=== PATIENT | female | born 1940 | race Caucasian/White ===

== ENCOUNTER 2016-12-03 09:11 | Outpatient (CLI) | payer MEDICARE ==
[~2016-12-03] VITALS: Ht 162.6 cm; Wt 72.7 kg
[2016-12-03] MEDS ORDERED: SERT100T PO (09:32)
[2016-12-03] MEDS ORDERED: LOVA10TA PO (09:32)
[2016-12-03] MEDS ORDERED: NAPR220T66 PO (09:32)
[2016-12-03 09:35] VITALS: BP 135/73
[2016-12-03 10:09] LABS: BASOPHILS % (AUTO) 0 % (0-10); EOSINOPHILS % (AUTO) 1 % (0-10); LYMPHOCYTES # (AUTO) 2.4 X 10^3 (1.0-4.0); LYMPHOCYTES % (AUTO) 33 % (12-44); MEAN CORPUSCULAR HEMOGLOBIN 29 PG (25-34); MEAN CORPUSCULAR HGB CONC 34 G/DL (32-36); MEAN CORPUSCULAR VOLUME 86 FL (80-99); MEAN PLATELET VOLUME 9.5 FL (7.4-10.4); MONOCYTES # (AUTO) 0.6 X 10^3 (0.0-1.0); MONOCYTES % (AUTO) 8 % (0-12); NEUTROPHILS # (AUTO) 4.1 X 10^3 (1.8-7.8); NEUTROPHILS % (AUTO) 58 % (42-75); PLATELET COUNT 215 10^3/uL (130-400); RED BLOOD COUNT 4.65 10^6/uL (4.35-5.85); WHITE BLOOD COUNT 7.1 10^3/uL (4.3-11.0)
[2016-12-11] MEDS ORDERED: DOCU100C37 PO (08:52)
[2016-12-11] MEDS ORDERED: OXYC-465 PO (08:52)
== END 2016-12-03 10:23 | disposition home or self-care (01) ==
LOC: PREOP 09:11
PROVIDERS: ATTEND Obstetrics & Gynecology
DX: Z01.812 Encounter for preprocedural laboratory examination (principal); N81.10 Cystocele, unspecified; N39.3 Stress incontinence (female) (male)
CPT/HCPCS: 36415; 85025; 87081

== ENCOUNTER 2016-12-10 12:08 | Day surgery (SDC) | payer MEDICARE ==
[~2016-12-10] VITALS: Ht 162.6 cm; Wt 72.7 kg
[~2016-12-10 12:08] MED LIST: LOVA10TA PO; NAPR220T66 PO; SERT100T PO
[2016-12-10] MEDS ORDERED: WATER (STERILE) FOR INJ 10 ML BTL INJ ONE (12:45)
[2016-12-10] MEDS ORDERED: BENZOCAINE/MENTHOL (DERMOPLAST) 56 ML CAN TP PRN (12:45)
[2016-12-10] MEDS ORDERED: ONDANSETRON 4 MG/2 ML (SDV) Z0FRAN IVP PRN ×2 (12:45→16:15)
[2016-12-10] MEDS ORDERED: fentaNYL INJECTION 100 MCG/2 ML AMP IVP PRN (12:45)
[2016-12-10] MEDS ORDERED: oxyCODONE/APAP 10/325MG (PERCOCET 10) TABLET PO PRN (12:45)
[2016-12-10] MEDS ORDERED: ESTROGENS CONJ IV 25 MG/5 ML (PREMARIN) VIAL IVP ONE (12:45)
--- NOTE | 2016-12-10 12:48 | Progress Note-Pre Operative ---
Pre-Operative Progress Note H&P Reviewed The H&P was reviewed, patient examined and no changes noted. Date Seen by Provider: Dec 10, 2016 Time Seen by Provider: 12:48 Date H&P Reviewed: Dec 10, 2016 Time H&P Reviewed: 12:48 Pre-Operative Diagnosis: vaginal prolapse and stress urinary incontinence JUAN MANUEL LEWIS MD Dec 10, 2016 12:48 pm
--- NOTE | 2016-12-10 12:49 | Progress Note-Post Operative ---
Post-Operative Progess Note Surgeon (s)/Certified Technician (s) Surgeon JUAN MANUEL LEWIS MD Certified Technician: Delia Mendez RN Pre-Operative Diagnosis vaginal prolapse and stress urinary incontinence Post-Operative Diagnosis same Procedure & Operative Findings Date of Procedure 12/10/16 Procedure Performed/Findings anterior and posterior vaginal repairs with enterocele repair and SSLS Anesthesia Type Gen. Estimated Blood Loss Estimated blood loss (mL): 100 cc Specimens/Packing Specimens Removed none Packing: JUAN MANUEL Carrasco MD Dec 10, 2016 12:49
[2016-12-10] MEDS ORDERED: ceFAZolin 1 GM/NS 50 ML IVPB IV ONE ×2 (13:00)
[2016-12-10] MEDS: LACTATED RINGERS 1,000 ML IV PRN ×2 (13:00→16:39)
[2016-12-10] MEDS ORDERED: NS (IVPB) 50 ML ONE (13:00)
[2016-12-10] MEDS ORDERED: ceFAZolin 1,000 MG (ANCEF) VIAL ONE (13:00)
[2016-12-10 13:30] VITALS: BP 134/69
[2016-12-10] MEDS ORDERED: ESTRADIOL VAGINAL CREAM 42.5 GM (ESTRACE) VG ONE (13:51)
[2016-12-10] MEDS ORDERED: proPOfol 200 MG/20 ML (DIPRIVAN) VIAL IV ONE (14:31)
[2016-12-10] MEDS ORDERED: SEVOFLURANE (ULTANE) 15 ML INHAL SOLN ONE (14:31)
[2016-12-10] MEDS ORDERED: LIDOCAINE PF 2% 5 ML (XYLOCAINE) VIAL ONE (14:31)
[2016-12-10] MEDS ORDERED: DEXAMETHASONE 10 MG/ML (DECADRON) 1 ML VIAL ONE (14:31)
[2016-12-10] MEDS ORDERED: FAMOTIDINE 20MG/2ML IV (PEPCID) IV ONE (14:45)
[2016-12-10] MEDS ORDERED: ONDANSETRON 4 MG/2 ML (SDV) Z0FRAN IV ONE (14:45)
[2016-12-10] MEDS ORDERED: morphine INJ 10 MG/ML 1ML (SYR OR VIAL) ONE (15:54)
[2016-12-10] MEDS ORDERED: WATER (STERILE) FOR INJECTION 10 ML ONE (15:54)
[2016-12-10] MEDS ORDERED: KETOROLAC 30 MG/ML VIAL ONE (15:54)
[2016-12-10] MEDS ORDERED: ESTROGENS CONJ IV 25 MG/5 ML (PREMARIN) VIAL ONE (15:54)
--- NOTE | 2016-12-10 15:55 | Progress Note-Post Operative ---
Post-Operative Progess Note Surgeon (s)/Horticulture Professor (s) Surgeon KENZIE CHAVEZ MD Horticulture Professor: DEBBIE Pre-Operative Diagnosis vaginal prolapse and stress urinary incontinence Post-Operative Diagnosis SAME Procedure & Operative Findings Date of Procedure 12/10/16 Procedure Performed/Findings PVS AND CYSTO Anesthesia Type GENERAL Estimated Blood Loss Estimated blood loss (mL): NEGLIGIBLE Specimens/Packing Specimens Removed NONE Packing: ESTRACE VAG PACK KENZIE CHAVEZ MD Dec 10, 2016 3:55 pm
[2016-12-10] MEDS ORDERED: PROMETHAZINE INJ 25 MG/ML (PHENERGAN) AMP ONE (16:37)
[2016-12-10] MEDS: morphine INJ 10 MG/ML 1ML (SYR OR VIAL) IVP PRN ×2 (16:39→16:44)
[2016-12-10] MEDS: KETOROLAC 15 MG/ML VIAL IVP SCH ×2 (16:43→23:05)
[2016-12-10] MEDS ORDERED: PROMETHAZINE INJ 25 MG/ML (PHENERGAN) AMP IVP PRN (16:45)
[2016-12-10] MEDS: fentaNYL INJECTION 100 MCG/2 ML AMP IVP PRN ×2 (16:50→17:00)
[2016-12-10 18:40] VITALS: BP 114/58
[2016-12-10 19:05] VITALS: BP 122/54
[2016-12-10] MEDS: D5 LR IV SOLUTION 1,000 ML IV SCH (19:39)
[2016-12-10] MEDS: FAMOTIDINE 20 MG (PEPCID) TABLET PO SCH (20:29)
[2016-12-10] MEDS ORDERED: CITRIC ACID/SOB CIT (BICITRA) 30 ML UDC PO ONE (20:30)
[2016-12-10 23:00] VITALS: BP 127/69
[2016-12-11 03:30] VITALS: BP 107/48
[2016-12-11] MEDS: D5 LR IV SOLUTION 1,000 ML IV SCH (03:35)
[2016-12-11] MEDS: KETOROLAC 15 MG/ML VIAL IVP SCH (04:17)
--- NOTE | 2016-12-11 08:51 | Progress Note-Standard ---
Standard Progress Note Progress Notes/Assess & Plan Date Seen by Provider: Dec 11, 2016 Time Seen by Provider: 08:49 Progress/Assessment & Plan patient is without complaint. She is tolerating by mouth well has good pain control. She is ambulating. She has not voided yet. Vital Signs Date Time Temp Pulse Resp B/P (MAP) Pulse Ox O2 Delivery O2 Flow Rate FiO2 12/11/16 07:00 73 96 Room Air 12/11/16 06:22 99.1 12/11/16 03:30 99.0 90 18 107/48 97 Nasal Cannula 3.00 12/10/16 23:00 98.5 79 16 127/69 97 12/10/16 20:00 98 Nasal Cannula 3.00 12/10/16 19:13 2.00 12/10/16 19:05 98.2 76 18 122/54 98 Nasal Cannula 3.00 12/10/16 18:40 97.6 83 18 114/58 98 High Flow N/C 3.00 12/10/16 13:30 99.0 67 18 134/69 99 Room Air vital signs are stable. Patient is afebrile. The abdomen is benign. Bowel sounds are present. Extremities show no clubbing cyanosis. There is no Homans sign. Assessment and plan is operative day number 1 doing well plan is for discharge home if Patient is voiding well. Final Diagnosis vaginal prolapse JUAN MANUEL LEWIS MD Dec 11, 2016 8:51 am
[2016-12-11] MEDS ORDERED: DOCU100C37 PO (08:52)
[2016-12-11] MEDS ORDERED: OXYC-465 PO (08:52)
--- NOTE | 2016-12-11 08:54 | Discharge Instructions ---
Discharge Instructions Discharge Medications New, Converted or Re-Newed RX: RX on Chart Patient Instructions Patient Instructions: as directed Return to The Hospital For: as directed Activity & Diet Discharge Diet: No Restrictions Activity as Tolerated: No Orders-Post D/C & Referrals Follow Up Appt: Call to make follow up appt. for patient in 4 weeks. follow-up with Dr. Farooq per his instructions Activity: Rest for 24 hours, than as tolerated. Please call in RX to patient pharmacy. Diet: As tolerated-Clear Liquids only if nauseated. Tomorrow, may shower or tub bathe as desired. No driving for 24 hours, no alcoholic beverages for 24 hours, and nothing per vagina (no tampons, douching, or intercourse) for 4 weeks. Patient to return to the clinic as soon as possible for: Temperature greater than 101F, Severe Pain, Foul discharge from incision or vagina, Excessive Bleeding (more than a period). JUAN MANUEL LEWIS MD Dec 11, 2016 8:54 am
[2016-12-11 08:56] VITALS: BP 114/62
[2016-12-11] MEDS: FAMOTIDINE 20 MG (PEPCID) TABLET PO SCH (08:56)
[2016-12-11] MEDS ORDERED: DOCUSATE SODIUM 100 MG (COLACE) CAP PO SCH (09:00)
--- NOTE | 2016-12-11 11:20 | Progress Note-Urology ---
Progress Note-Urology Progress Notes/Assess & Plan Progress/Assessment & Plan RECOVERED WELL. HAS NOT VOIDED YET BUT HAS ONLY 80CC BY BLADDER SCAN. TOLD HER TO INCREASE FLUIDS. NO LEAKAGE. OBSERVE Final Diagnosis INCONTINENCE, OAB, ISD KENZIE CHAVEZ MD Dec 11, 2016 11:20
[2016-12-11] MEDS ORDERED: IBUPROFEN 800 MG (MOTRIN) TAB PO ONE (11:29)
[2016-12-11 14:00] VITALS: BP 129/56
--- NOTE | 2016-12-11 14:54 | OPERATIVE REPORT ---
DATE OF SERVICE: 12/10/2016 PREOPERATIVE DIAGNOSIS: Urinary incontinence. POSTOPERATIVE DIAGNOSIS: Urinary incontinence. OPERATION PERFORMED: Pubovaginal sling and cystoscopy. SURGEON: KENZIE CHAVEZ MD ANESTHESIA: General. DEWER: JUAN MANUEL AYALA MD COMPLICATIONS: None. PROCEDURE: After Dr. Ayala finished the first part of the surgery that he will dictate, I went ahead and inserted a Sosa catheter draining clear urine. I passed the pubovaginal sling Solyx device on both sides using the described technique. The sleeve was sitting nicely under the mid urethra with no tension, no twist and passage of hemostat easily between it and the underlying tissues. I removed the Sosa catheter and inserted the cystoscope to confirm the integrity of the bladder, ureteral orifices, and urethra, there was no foreign body or bladder tumor, and the presence of the sling under the mid urethra. I left the bladder half full to perform a manual Valsalva maneuver after removing the cystoscope and it was negative. I re-inserted the Sosa catheter. Estimated blood loss on my part negligible. The patient tolerated the procedure and anesthesia well and Dr. Ayala's procedure with the rest of the surgery that he will dictate. Job ID: [id number] DocumentID: [id number] Dictated Date: 12/10/2016 15:57:27 Equipment Operator Wage Hand Date: 12/11/2016 14:54:14 Dictated By: KENZIE CHAVEZ MD
--- NOTE | 2016-12-11 17:07 | OPERATIVE REPORT ---
DATE OF SERVICE: 12/10/2016 PREOPERATIVE DIAGNOSIS: Vaginal prolapse and stress urinary incontinence. POSTOPERATIVE DIAGNOSIS: Vaginal prolapse and stress urinary incontinence. OPERATIVE PROCEDURE: Anterior and posterior vaginal repairs with enterocele repair and sacrospinous ligament suspension, as well as Dr. Farooq performing a pubovaginal sling and cystoscopy. OPERATIVE DESCRIPTION: With the patient in supine position under satisfactory general anesthesia, she was repositioned in the dorsal lithotomy position in the Campos stirrups and prepped and draped in the usual fashion for vaginal surgery. A weighted speculum was placed in the posterior fornix of the vagina. The anterior vaginal wall was grasped with 2 Shawnee clamps at its midpoint. The vaginal wall was opened in the midline with Metzenbaum scissors. That opening was continued from approximately 1.5 cm from the urethral meatus to the apex of the vagina. The bladder was then carefully dissected off of the muscularis of the vagina back to the pubic rami bilaterally. There was a second to third degree cystocele present. The dissection was rather extensive but with the bladder eventually dissected free, the endopelvic fascia and bladder wall were plicated with 2-0 Vicryl sutures, elevating the bladder and lengthening the urethra and putting the bladder back up into the pelvis in a normal anatomic position. At this point Dr. Farooq assumed care of the patient to perform a pubovaginal sling cystoscopy which I stayed to assist. On completion of Dr. Farooq's portion of the procedure, which he will dictate, I resumed care of the patient, resected redundant anterior vaginal wall muscularis and mucosa and then closed the vaginal wall with a running locked suture of 3-0 Vicryl Rapide. Good support was evident. The vaginal apex, however, was descending at least to second degree, going down the vaginal wall, necessitating the sacrospinous ligament suspension. That was performed in conjunction with the posterior repair. Posterior repair was initiated by placing Shawnee clamps on the perineum and the hymenal ring at 5 and 7 o'clock position. An inverted triangle of skin was removed from the perineal body and upright triangle from the posterior vaginal floor. The rectovaginal space was entered sharply and dissected bluntly to the apex of the vagina where it was explored for an enterocele, finding a small one. Plan was to close that after the sacrospinous ligament suspension sutures were placed. The Capio device was used to place 2-0 Ethibond suture into the sacrospinous ligament approximately 2 cm and 2.5 cm medial to the sacrospinous to the ischial spine. Those sutures were double-armed. Each arm was brought out through the apex of the vagina, tagged and held long for tying later. The apex of the rectovaginal space was now exposed and the enterocele was reduced and plicated with 2 sutures of 2-0 Vicryl in a pursestring fashion. The rectovaginal space itself was now obliterated with interrupted sutures of 2-0 Vicryl. The perineal body was restored with 2-0 Vicryl as well. The redundant posterior vaginal wall muscularis mucosa was removed sharply. The vaginal wall was closed with a running locked suture of 3-0 Vicryl Rapide. That closure was continued past the hymenal ring down on the perineal body and then back up to the subcu to the hymenal ring where the suture was tied. The sacrospinous ligament suspension sutures were now tied. As each was tied, the apex of the vagina was brought well back up into the pelvis to a normal anatomic position. The vagina was examined for hemostasis which was complete. With sponge and needle counts correct and hemostasis assured and the procedures completed, the vagina was filled with Estrace vaginal cream and a pack of Kerlix gauze was placed. Digital rectal exam at this point did demonstrate one suture passing through the wall of the rectum into the rectum in a length of approximately 2-3 mm on digital palpation. Metzenbaum scissors were introduced transanally and the suture clipped and retracted into the tissues. With no additional sutures into or through the rectal mucosa and with no stricture or stenosis of the rectum, sponge and needle counts being correct, estimated blood loss around 100 mL, the patient was now uneventfully awakened from her general anesthesia and transferred to the recovery room in stable condition. Job ID: [id number] DocumentID: [id number] Dictated Date: 12/10/2016 16:31:29 Control Valve Mechanic Date: 12/11/2016 17:07:07 Dictated By: JUAN MANUEL LEWIS MD
[2016-12-11] MEDS ORDERED: IBUPROFEN 800 MG (MOTRIN) TAB PO SCH (18:00)
--- NOTE | 2016-12-12 13:48 | Anesthesia-General Post-Op ---
General Patient Condition Mental Status/LOC: Same as Preop Cardiovascular: Satisfactory Nausea/Vomiting: Absent Respiratory: Satisfactory Pain: Controlled Complications: Absent Post Op Complications Complications None Follow Up Care/Instructions Patient Instructions None needed. Anesthesia/Patient Condition Patient Condition Patient's vital signs stable and no apparent adverse anesthesia problems, thus patient was discharged at 1700 on 12/11/16 SHANIQUA FORREST CRNA Dec 12, 2016 13:48
== END 2016-12-11 17:00 | disposition home or self-care (01) ==
LOC: SDC 12:08 → LDRP 17:43 → SDC 12-11 17:00
PROVIDERS: ATTEND Obstetrics & Gynecology
DX: N81.10 Cystocele, unspecified (principal); N39.3 Stress incontinence (female) (male); M19.91 Primary osteoarthritis, unspecified site; F32.9 Major depressive disorder, single episode, unspecified; F41.9 Anxiety disorder, unspecified; Z79.899 Other long term (current) drug therapy
CPT/HCPCS: 94664

== ENCOUNTER 2018-08-25 16:14 | Emergency (ER) | payer MEDICARE ==
[~2018-08-25] VITALS: Ht 162.6 cm; Wt 70.3 kg
[~2018-08-25 16:14] MED LIST changes: +DOCU100C37 PO; +OXYC-465 PO
[2018-08-25 16:45] LABS: CLARITY,URINE CLEAR; COLOR,URINE YELLOW; GLUCOSE, URINE (UA) NEGATIVE (NEGATIVE); KETONES,URINE NEGATIVE (NEGATIVE); NITRITE,URINE NEGATIVE (NEGATIVE); PH,URINE 6.5 (5-9); PROTEIN,URINE NEGATIVE (NEGATIVE)
[2018-08-25 16:46] LABS: BACTERIA,URINE TRACE /HPF; BILIRUBIN,URINE NEGATIVE (NEGATIVE); LEUKOCYTE ESTERASE ,URINE NEGATIVE (NEGATIVE); UROBILINOGEN,URINE 0.2 MG/DL (NORMAL)
--- NOTE | 2018-08-25 16:51 | ED Abdominal Pain ---
General Chief Complaint: Abdominal/GI Problems Stated Complaint: RT SIDE PAIN Nursing Triage Note: PATIENT STATED THAT SHE HAD DIARRHEA STARTING THIS MORNING, SHE TOOK AN ANTIDIARRHEAL BUT HAS BEEN EXPERIENCING CRAMPING PAINS IN THE RIGHT SIDE OF HER ABDOMEN AND STATES THAT THEY EXTEND UP IN THE EPIGASTRIC AREA. Sepsis Screen: No Definite Risk Source of Information: Patient, RN Notes Reviewed Exam Limitations: No Limitations History of Present Illness Date Seen by Provider: August 25, 2018 Time Seen by Provider: 16:33 Initial Comments Patient presents c/ c/o diarrhea and right sided abdominal cramping since this AM. Took some Imodium, but the diarrhea has persisted. (+) nausea c/ one episode of vomiting. Cramping has resolved. Did radiate up into her epigastric area. Denies any symptoms. No known fever. Timing/Duration: 12 Hours, Other (persistent) Severity/Quality: Mild, Cramping (initially (gone now)) Location: RUQ, RLQ Radiation: Epigastric Activities at Onset: None Modifying Factors: Worsens With Defecating; Improves With Vomiting (x1) Associated Symptoms: Denies Symptoms (x/ as noted.), Nausea/Vomiting ((+) nausea; vomiting x 1) Allergies and Home Medications Allergies Coded Allergies: Penicillins (Verified Allergy, Intermediate, HIVES, 12/03/16) adhesive tape (Verified Allergy, Intermediate, RASH, 12/03/16) Home Medications Docusate Sodium 100 Mg Capsule, 100 MG PO BID Prescribed by: JUAN MANUEL INGRAM on 12/11/16 0852 Lovastatin 10 Mg Tablet, 10 MG PO HS, (Reported) Naproxen Sodium 220 Mg Tablet, 220 MG PO PRN, (Reported) Oxycodone HCl/Acetaminophen 1 Each Tablet, 1-2 TAB PO Q4HR PRN for PAIN- MODERATE TO SEVERE Prescribed by: JUAN MANUEL INGRAM on 12/11/16 0852 Sertraline HCl 100 Mg Tablet, 50 MG PO DAILY, (Reported) Patient Home Medication List Home Medication List Reviewed: Yes Review of Systems Review of Systems Constitutional: see HPI Gastrointestinal: See HPI, Abdominal Pain, Diarrhea, Nausea, Vomiting All Other Systems Reviewed Negative Unless Noted: Yes (Negative excepted noted.) Past Hzfqozj-Wjyjpw-Nbdiou Hx Patient Social History Alcohol Use: Denies Use Recreational Drug Use: No Smoking Status: Never a Smoker 2nd Hand Smoke Exposure: No Recent Foreign Travel: No Contact w/Someone Who Travel: No Recent Infectious Disease Expo: No Recent Hopitalizations: No Physical Abuse: No Sexual Abuse: No Mistreated: No Fear: No Immunizations Up To Date Date of Pneumonia Vaccine: Jan 26, 2016 Date of Influenza Vaccine: Jan 26, 2016 Seasonal Allergies Seasonal Allergies: No Past Medical History Surgeries: Yes (RIGTH KNEE SCOPE) Adenoidectomy, Gallbladder, Hysterectomy, Oophorectomy, Tonsillectomy Respiratory: No Cardiac: Yes High Cholesterol, Irregular Heartbeat Neurological: Yes Headaches /Migraines 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 Sexually Transmitted Disease: No (VAGINAL PROLAPSE) HIV/AIDS: No Genitourinary: No Gastrointestinal: Yes Gastroesophageal Reflux, Chronic Constipation Musculoskeletal: Yes Arthritis, Chronic Back Pain Endocrine: No HEENT: No Loss of Vision: Bilateral Hearing Impairment: Denies Cancer: No Psychosocial: Yes Anxiety, Depression Integumentary: No Blood Disorders: No Adverse Reaction/Blood Tranf: No Physical Exam Vital Signs Vital Signs - First Documented 08/25/18 16:21 Temp 99.1 Pulse 82 Resp 18 B/P (MAP) 145/58 (87) Pulse Ox 99 O2 Delivery Room Air Capillary Refill : Less Than 3 Seconds Height/Weight/BMI Height: 5'4.00" Weight: 155lbs. 4.0oz. 70.194439cf; 27.5 BMI Method:Stated General Appearance: WD/WN, no apparent distress, obese Respiratory: no respiratory distress Cardiovascular: regular rate, rhythm Gastrointestinal: non tender, soft Rectal: deferred Neurologic/Psychiatric: no motor/sensory deficits, alert, normal mood/affect, oriented x 3 Skin: warm/dry; No rash Progress/Results/Core Measures Results/Orders Lab Results Laboratory Tests Test 08/25/18 16:21 08/25/18 17:11 Range/Units Urine Color YELLOW Urine Clarity CLEAR Urine pH 6.5 5-9 Urine Specific Holly 1.020 1.016-1.022 Urine Protein NEGATIVE NEGATIVE Urine Glucose (UA) NEGATIVE NEGATIVE Urine Ketones NEGATIVE NEGATIVE Urine Nitrite NEGATIVE NEGATIVE Urine Bilirubin NEGATIVE NEGATIVE Urine Urobilinogen 0.2 NORMAL MG/DL Urine Leukocyte Esterase NEGATIVE NEGATIVE Urine RBC (Auto) 1+ H NEGATIVE Urine RBC 2-5 H /HPF Urine WBC 2-5 /HPF Urine Squamous Epithelial Cells 2-5 /HPF Urine Crystals NONE /LPF Urine Calcium Oxalate Crystals /LPF Urine Cystine Crystals /LPF Urine Uric Acid Crystals /LPF Urine Amorphous Sediment /LPF Urine Bacteria TRACE /HPF Urine Casts NONE /LPF Urine Mucus NEGATIVE /LPF Urine Culture Indicated NO White Blood Count 8.5 4.3-11.0 10^3/uL Red Blood Count 4.59 4.35-5.85 10^6/uL Hemoglobin 13.4 11.5-16.0 G/DL Hematocrit 40 35-52 % Mean Corpuscular Volume 87 80-99 FL Mean Corpuscular Hemoglobin 29 25-34 PG Mean Corpuscular Hemoglobin Concent 34 32-36 G/DL Red Cell Distribution Width 13.0 10.0-14.5 % Platelet Count 222 130-400 10^3/uL Mean Platelet Volume 9.7 7.4-10.4 FL Neutrophils (%) (Auto) 63 42-75 % Lymphocytes (%) (Auto) 25 12-44 % Monocytes (%) (Auto) 11 0-12 % Eosinophils (%) (Auto) 1 0-10 % Basophils (%) (Auto) 0 0-10 % Neutrophils # (Auto) 5.4 1.8-7.8 X 10^3 Lymphocytes # (Auto) 2.1 1.0-4.0 X 10^3 Monocytes # (Auto) 0.9 0.0-1.0 X 10^3 Eosinophils # (Auto) 0.1 0.0-0.3 10^3/uL Basophils # (Auto) 0.0 0.0-0.1 10^3/uL Sodium Level 141 135-145 MMOL/L Potassium Level 3.8 3.6-5.0 MMOL/L Chloride Level 103 98-107 MMOL/L Carbon Dioxide Level 22 21-32 MMOL/L Anion Gap 16 H 5-14 MMOL/L Blood Urea Nitrogen 15 7-18 MG/DL Creatinine 0.68 0.60-1.30 MG/DL Estimat Glomerular Filtration Rate > 60 BUN/Creatinine Ratio 22 Glucose Level 107 H 70-105 MG/DL Calcium Level 8.9 8.5-10.1 MG/DL Corrected Calcium 8.7 8.5-10.1 MG/DL Magnesium Level 2.4 1.8-2.4 MG/DL Total Bilirubin 0.7 0.1-1.0 MG/DL Aspartate Amino Transf (AST/SGOT) 109 H 5-34 U/L Alanine Aminotransferase (ALT/SGPT) 53 0-55 U/L Alkaline Phosphatase 126 40-136 U/L Troponin T < 10 <=10 NG/L Total Protein 7.4 6.4-8.2 GM/DL Albumin 4.3 3.2-4.5 GM/DL Lipase 37 8-78 U/L My Orders Orders - JADYN SIMMONS DO Ua Culture If Indicated (08/25/18 16:24) Ekg Tracing (08/25/18 16:47) Cbc With Automated Diff (08/25/18 16:47) Comprehensive Metabolic Panel (08/25/18 16:47) Troponin T (08/25/18 16:47) Lipase (08/25/18 16:47) Magnesium (08/25/18 16:47) Vital Signs/I&O 08/25/18 16:21 Temp 99.1 Pulse 82 Resp 18 B/P (MAP) 145/58 (87) Pulse Ox 99 O2 Delivery Room Air Blood Pressure Mean: 87 Initial ECG Impression Date: August 25, 2018 Initial ECG Impression Time: 17:05 Initial ECG Rate: 73 Initial ECG Rhythm: Normal Sinus Initial ECG Impression: Nonspecific Changes (RBBB) Initial ECG Comparisson: No Previous ECG Available Departure Impression Primary Impression: IBS (irritable bowel syndrome) Disposition: 01 HOME, SELF-CARE Condition: Improved Departure-Patient Inst. Decision time for Depature: 17:49 Referrals: JESSE ALFORD MD (PCP/Family) Primary Care Physician Patient Instructions: Irritable Bowel Syndrome (DC), Diarrhea in Adolescents and Adults Add. Discharge Instructions: All discharge instructions reviewed with patient and/or family. Voiced understanding. RECOMMEND FOLLOWING UP WITH YOUR PCP IN ORDER TO GET A COLONOSCOPY AND POSSIBLY A GI REFERRAL ARRANGED TO FURTHER EVALUATE YOUR SYMPTOMS. Scripts Hyoscyamine Sulfate (Levsin-Sl) 0.125 Mg Tab.subl 0.125 MG SL Q4H PRN for CRAMPING/DIARRHEA, #20 TAB 0 Refills Prov: JADYN SIMMONS DO 08/25/18 JADYN SIMMONS DO August 25, 2018 16:51
[2018-08-25 17:20] LABS: HEMOGLOBIN 13.4 G/DL (11.5-16.0); MEAN CORPUSCULAR HEMOGLOBIN 29 PG (25-34); WHITE BLOOD COUNT 8.5 10^3/uL (4.3-11.0)
[2018-08-25 17:21] LABS: BASOPHILS % (AUTO) 0 % (0-10); EOSINOPHILS # (AUTO) 0.1 10^3/uL (0.0-0.3); EOSINOPHILS % (AUTO) 1 % (0-10); HEMATOCRIT 40 % (35-52); LYMPHOCYTES # (AUTO) 2.1 X 10^3 (1.0-4.0); LYMPHOCYTES % (AUTO) 25 % (12-44); MEAN CORPUSCULAR HGB CONC 34 G/DL (32-36); MEAN CORPUSCULAR VOLUME 87 FL (80-99); MEAN PLATELET VOLUME 9.7 FL (7.4-10.4); MONOCYTES # (AUTO) 0.9 X 10^3 (0.0-1.0); MONOCYTES % (AUTO) 11 % (0-12); NEUTROPHILS # (AUTO) 5.4 X 10^3 (1.8-7.8); NEUTROPHILS % (AUTO) 63 % (42-75); PLATELET COUNT 222 10^3/uL (130-400)
[2018-08-25 17:44] LABS: ALANINE AMINOTRANSFERASE 53 U/L (0-55); ALKALINE PHOSPHATASE 126 U/L (40-136); BILIRUBIN,TOTAL 0.7 MG/DL (0.1-1.0); BUN/CREATININE RATIO 22; CALCIUM 8.9 MG/DL (8.5-10.1); CARBON DIOXIDE 22 MMOL/L (21-32); CHLORIDE 103 MMOL/L (98-107); CREATININE SERUM 0.68 MG/DL (0.60-1.30); GFR ESTIMATED > 60; GLUCOSE 107 MG/DL (70-105); MAGNESIUM 2.4 MG/DL (1.8-2.4); POTASSIUM 3.8 MMOL/L (3.6-5.0); SODIUM 141 MMOL/L (135-145)
[2018-08-25 17:45] LABS: ALBUMIN 4.3 GM/DL (3.2-4.5); LIPASE 37 U/L (8-78); TOTAL PROTEIN 7.4 GM/DL (6.4-8.2)
[2018-08-25] MEDS ORDERED: HYOS0.1283 SL (17:51)
[2018-08-25 18:02] VITALS: BP 140/55
--- OUTSIDE RECORDS SUMMARY | 2018-08-25 18:34 | XMS REPORT | Continuity of Care Document ---
Author Organization Unknown Address Unknown Allergies There is no data. Medications There is no data. Problems There is no data. Procedures There is no data. Results Test Result Range LIPID PANEL - 07/19/18 11:24 CHOLESTEROL, TOTAL 171 mg/dL <200 HDL CHOLESTEROL 41 mg/dL >50 TRIGLYCERIDES 114 mg/dL <150 LDL-CHOLESTEROL 108 mg/dL (calc) NRG CHOL/HDLC RATIO 4.2 (calc) <5.0 NON HDL CHOLESTEROL 130 mg/dL (calc) <130 CMP - 07/19/18 11:24 GLUCOSE 90 mg/dL 65-99 UREA NITROGEN (BUN) 15 mg/dL 7-25 CREATININE 0.64 mg/dL 0.60-0.93 eGFR NON-AFR. GEORGIAN 85 mL/min/1.73m2 > OR=60 eGFR 99 mL/min/1.73m2 > OR=60 BUN/CREATININE RATIO NOT APPLICABLE (calc) 6-22 SODIUM 143 mmol/L 135-146 POTASSIUM 3.8 mmol/L 3.5-5.3 CHLORIDE 108 mmol/L 98-110 CARBON DIOXIDE 26 mmol/L 20-32 CALCIUM 9.0 mg/dL 8.6-10.4 PROTEIN, TOTAL 6.9 g/dL 6.1-8.1 ALBUMIN 4.1 g/dL 3.6-5.1 GLOBULIN 2.8 g/dL (calc) 1.9-3.7 ALBUMIN/GLOBULIN RATIO 1.5 (calc) 1.0-2.5 BILIRUBIN, TOTAL 0.8 mg/dL 0.2-1.2 ALKALINE PHOSPHATASE 75 U/L 33-130 AST 12 U/L 10-35 ALT 11 U/L 6-29 CBC - 07/19/18 11:24 WHITE BLOOD CELL COUNT 6.1 Thousand/uL 3.8-10.8 RED BLOOD CELL COUNT 4.70 Million/uL 3.80-5.10 HEMOGLOBIN 13.8 g/dL 11.7-15.5 HEMATOCRIT 40.7 % 35.0-45.0 MCV 86.6 fL 80.0-100.0 MCH 29.4 pg 27.0-33.0 MCHC 33.9 g/dL 32.0-36.0 RDW 13.1 % 11.0-15.0 PLATELET COUNT 219 Thousand/uL 140-400 MPV 9.3 fL 7.5-12.5 ABSOLUTE NEUTROPHILS 3526 cells/uL [id number] ABSOLUTE LYMPHOCYTES 2025 cells/uL 850-3900 ABSOLUTE MONOCYTES 458 cells/uL 200-950 ABSOLUTE EOSINOPHILS 61 cells/uL 15-500 ABSOLUTE BASOPHILS 31 cells/uL 0-200 NEUTROPHILS 57.8 % NRG LYMPHOCYTES 33.2 % NRG MONOCYTES 7.5 % NRG EOSINOPHILS 1.0 % NRG BASOPHILS 0.5 % NRG Encounters ACCT No. Visit Date/Time Discharge Status Pt. Type Provider Facility Loc./Unit Complaint [id number] 07/21/2018 10:15:00 07/21/2018 23:59:59 [facility] [id number] 07/19/2018 11:00:00 Document Registration
== END 2018-08-25 17:59 | disposition home or self-care (01) ==
LOC: EDUNIT# 16:14 → ER FS 16:16
DX: K58.9 Irritable bowel syndrome, unspecified (principal); E78.00 Pure hypercholesterolemia, unspecified; G43.909 Migraine, unspecified, not intractable, without status migrainosus; K21.9 Gastro-esophageal reflux disease without esophagitis; F41.9 Anxiety disorder, unspecified; F32.9 Major depressive disorder, single episode, unspecified; Z87.19 Personal history of other diseases of the digestive system; Z88.0 Allergy status to penicillin; Z91.048 Other nonmedicinal substance allergy status; Z90.89 Acquired absence of other organs; Z90.710 Acquired absence of both cervix and uterus
CPT/HCPCS: 36415; 80053; 81000; 83690; 83735; 84484; 85025; 93005

== ENCOUNTER 2021-05-31 19:42 | Emergency (ER) | payer MEDICARE ==
[~2021-05-31 19:42] MED LIST changes: +HYOS0.1283 SL; -OXYC-465 PO; +OXYC-556 PO
--- NOTE | 2021-05-31 20:01 | ED General ---
General Stated Complaint: HIGH BLOOD PRESSURE Source of Information: Patient, Family Exam Limitations: No Limitations History of Present Illness Date Seen by Provider: May 31, 2021 Time Seen by Provider: 19:45 Initial Comments 81-year-old female with past medical history of hypercholesterolemia and anxiety coming in due to elevated blood pressure. She says she felt a twinge in the back of her head and so she took her blood pressure about an hour ago. She said the top number was 200 so she came to the emergency department. Currently she is denying any headache, vision changes, weakness, numbness, chest pain, shortness of breath, nausea, vomiting, or any other concerns. She says she feels completely normal at this time. She says she follows with Dr. Alford, and typically she believes her blood pressure is normal, and she has never required medications. She has not taken anything other than her regular meds today. She said she rolled out of bed 2 weeks ago and landed on her face. She saw her regular doctor and was started on Naprosyn at that time. Allergies and Home Medications Allergies Coded Allergies: Penicillins (Verified Allergy, Intermediate, HIVES, 12/03/16) adhesive tape (Verified Allergy, Intermediate, RASH, 12/03/16) Patient Home Medication List Home Medication List Reviewed: Yes Docusate Sodium (Docusate Sodium) 100 Mg Capsule, 100 MG PO BID Prescribed by: JUAN MANUEL INGRAM on 12/11/16 08 Hyoscyamine Sulfate (Levsin-Sl) 0.125 Mg Tab.subl, 0.125 MG SL Q4H PRN for CRAMPING/DIARRHEA Prescribed by: JADYN SIMMONS on 08/25/18 1751 Lovastatin (Lovastatin) 10 Mg Tablet, 10 MG PO HS, (Reported) Entered as Reported by: SONNY WEATHERS on 12/03/16 0932 Naproxen Sodium (Aleve) 220 Mg Tablet, 220 MG PO PRN, (Reported) Entered as Reported by: SONNY WEATHERS on 12/03/16 0932 Oxycodone HCl/Acetaminophen (Oxycodone-Acetaminophen 10-325) 1 Each Tablet, 1-2 TAB PO Q4HR PRN for PAIN-MODERATE TO SEVERE Prescribed by: JUAN MANUEL INGRAM on 12/11/16 08 Sertraline HCl (Zoloft) 100 Mg Tablet, 50 MG PO DAILY, (Reported) Entered as Reported by: SONNY WEATHERS on 12/03/16 0932 Review of Systems Review of Systems Constitutional: No chills, No fever EENTM: No blurred vision Respiratory: No cough, No short of breath Cardiovascular: No chest pain Gastrointestinal: No abdominal pain, No diarrhea, No nausea, No vomiting Genitourinary: no symptoms reported Musculoskeletal: no symptoms reported Skin: no symptoms reported Psychiatric/Neurological: Anxiety; Denies Headache, Denies Numbness, Denies Weakness Hematologic/Lymphatic: No Symptoms Reported Immunological/Allergic: no symptoms reported Past Qmyezjs-Nzfsie-Jhjkea Hx Seasonal Allergies Seasonal Allergies: No Past Medical History Surgeries: Yes (RIGTH KNEE SCOPE) Adenoidectomy, Gallbladder, Hysterectomy, Oophorectomy, Tonsillectomy Respiratory: No Cardiac: Yes High Cholesterol, Irregular Heartbeat Neurological: Yes Headaches /Migraines 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 4.0oz. [id number]; 27.5 BMI Method:Stated General Appearance: No Apparent Distress, WD/WN Eyes: Bilateral Eye Normal Inspection, Bilateral Eye PERRL, Bilateral Eye EOMI HEENT: PERRL/EOMI, TMs Normal, Normal ENT Inspection, Pharynx Normal Neck: Full Range of Motion, Normal Inspection, Non Tender, Supple Respiratory: Chest Non Tender, Lungs Clear, Normal Breath Sounds, No Accessory Muscle Use Cardiovascular: Regular Rate, Rhythm, No Edema, Normal Peripheral Pulses Gastrointestinal: Normal Bowel Sounds, Non Tender, Soft; No Distended, No Guarding Back: Normal Inspection, No CVA Tenderness, No Vertebral Tenderness Extremity: Normal Capillary Refill, Normal Inspection, Normal Range of Motion, Non Tender, No Calf Tenderness, No Pedal Edema Neurologic/Psychiatric: Alert, Oriented x3, No Motor/Sensory Deficits, Normal Mood/Affect, pharmacoepidemiologist II-XII Norm as Tested; No Abnormal Cerebellar Tests, No Abn ormal Gait Skin: Normal Color, Warm/Dry Lymphatic: No Adenopathy Progress/Results/Core Measures Suspected Sepsis SIRS Temperature: Pulse: Respiratory Rate: Blood Pressure / Mean: Results/Orders My Orders Orders - CHRIS MILLIGAN MD Ekg Tracing (05/31/21 19:55) Vital Signs/I&O Capillary Refill : Progress Note : Progress Note 81-year-old female with above history coming in due to elevated blood pressure. ABCs were intact and vitals were stable on presentation although her blood pressure is slightly elevated. It is 180/60 on arrival. EKG obtained because she said her heart skipped a couple beats 1 time yesterday. It appears similar to prior EKG without ischemic changes. She is completely asymptomatic including no signs of stroke, chest pain, shortness of breath, she is urinating normally, and has no other concerns. I discussed with her that she should start a log and record her blood pressure release 2-3 times per day during different times. I told her to write down how she is feeling before she takes her blood pressure. I discussed that she should try stopping the Naprosyn and see if her blood pressure goes back down. I told her given this is just a single elevated blood pressure over the past hour and she has never been elevated before, but I do not recommend starting a blood pressure medication yet. I told her if she continues to trend high over the next couple days she should call Dr. Alford to start a blood pressure medicine. I discussed return precautions including severe headache, chest pain, shortness of breath, weakness, numbness, or any other c oncerns. She was then discharged in stable condition. ECG Initial ECG Impression Date: May 31, 2021 Initial ECG Impression Time: 19:59 Initial ECG Rate: 74 Initial ECG Rhythm: Normal Sinus Comment Right bundle branch block with no significant ST changes or T wave abnormalities, similar to prior EKG from 2019. Departure Impression Primary Impression: Asymptomatic hypertension Disposition: 01 HOME, SELF-CARE Condition: Stable Departure-Patient Inst. Decision time for Depature: 20:04 Referrals: JESSE ALFORD MD (PCP/Family) Primary Care Physician Patient Instructions: High Blood Pressure ED Add. Discharge Instructions: Please take your blood pressure and create a journal where you are recording the numbers at least 2-3 times per day at the same time each day. Write down how you feel before you take for blood pressure. Write down if you took the naproxen that they are not. Naproxen can elevate your blood pressure. If it is persistently elevated over the next several days then I recommend calling your regular doctor to see if he can start you on a medication. If you have the worst headache ever, severe chest pain, severe shortness of breath, weakness, numbness, or you stop urinating then I recommend coming back to the ER. CHRIS MILLIGAN MD May 31, 2021 20:01
[2021-05-31 20:10] VITALS: BP 180/65
== END 2021-05-31 20:10 | disposition home or self-care (01) ==
LOC: EDUNIT# 19:42 → ER FS 19:45
DX: I10 Essential (primary) hypertension (principal); E78.00 Pure hypercholesterolemia, unspecified; F41.9 Anxiety disorder, unspecified; F32.9 Major depressive disorder, single episode, unspecified; Z79.899 Other long term (current) drug therapy
CPT/HCPCS: 93005